=== PATIENT | male | born 1955 | race Caucasian/White ===

== ENCOUNTER 2018-07-12 08:40 | Outpatient (CLI) | payer MEDICARE ==
--- NOTE | 2018-07-12 19:19 | ULT ---
ABDOMINAL AORTA ULTRASOUND: 07/12/18 Screening ultrasound exam of the abdominal aorta was performed. There is no evidence of aortic aneury sm. The maximal diameter of the proximal abdominal aorta was 2.4 cm, mid aorta 2.1 cm, and distal aor ta 2.1 cm. The bifurcation is unremarkable. The visible surrounding abdominal back wall structures we re unremarkable. IMPRESSION: No evidence of aortic aneurysm. POS: HOME
== END 2018-07-12 08:41 | disposition home or self-care (01) ==
LOC: BURULT 08:40
PROVIDERS: ATTEND Family Medicine
DX: Z13.6 Encounter for screening for cardiovascular disorders (principal)
CPT/HCPCS: 76775